=== PATIENT | male | born 1990 | race Caucasian/White ===

== ENCOUNTER → 2020-12-15 10:39 | Outpatient (BNVA) | payer SELFPAY | PROVIDERS: Family Provider Nurse Practitioner Family; PCP Registered Nurse; Visit Provider Registered Nurse | DX: K43.2 Incisional hernia without obstruction or gangrene (principal); Z83.42 Family history of familial hypercholesterolemia | CPT/HCPCS: 80061 ==

== ENCOUNTER 2020-12-24 13:41 | Outpatient (CLI) | payer SELFPAY ==
--- NOTE | 2020-12-24 14:00 | CT_ITS ---
WS: [id number] CT ABDOMEN PELVIS TECHNIQUE: Noncontrast CT of the abdomen and pelvis with coronal and sagittal reformatted images. CLINICAL INFORMATION: K43.2 - Incisional hernia without obstruction or gangrene COMPARISON: None. DLP: 1150.[address] scans at [facility] use at least one of these dose optimization techniques: automat ed exposure control; mA and/or kV adjustment per patient size (includes targeted exams where dose is matched to clinical indication); or iterative reconstruction. FINDINGS: Large appendicolith within the appendix measuring 7.3 mm. Fluid-filled appendix with mild induration suspicious for acute appendicitis. Dilated appendix measures 10 mm. No evidence of drainable abscess or fluid collection. Noncontrast liver is normal. Noncontrast spleen is normal. Normal GE junction. Adrenal glands are nor mal. No hydronephrosis in either kidney. No obstructing renal or ureteral calculi. Normal GE junction . No evidence of small or large bowel obstruction. No free fluid in the pelvis. A few prominent lymph nodes in the right lower quadrant. Tiny fat-containing umbilical hernia. CT/CT abdomen pelvis wo con [id number] IMPRESSION: 1. Dilated fluid-filled appendix with mild surrounding inflammatory changes an d prominent appendicolith. Findings consistent with acute appendicitis. 2. A few prominent lymph nodes in the right lower quadrant. 3. No evidence of abscess or drainable fluid collection Notified KITTY Chaney at 12/24/2020 2:28 PM.
== END 2020-12-24 13:42 | disposition home or self-care (01) ==
LOC: RADWPI 13:43
PROVIDERS: Family Provider Nurse Practitioner Family; PCP Registered Nurse; Visit Provider Registered Nurse
DX: K43.2 Incisional hernia without obstruction or gangrene (principal); R10.9 Unspecified abdominal pain
CPT/HCPCS: 74176

== ENCOUNTER 2020-12-24 14:42 | Emergency (ER) | payer SELFPAY ==
[2020-12-24 14:56] VITALS: BP 160/94; PULSE 53; RESP 16; TEMP 36.8; O2SAT 98; BMI 31.0
[2020-12-24] MEDS: sodium chloride 0.9% 1,000 ML 999 ML IV (15:51)
--- NOTE | 2020-12-24 15:56 | ED_ITS ---
HPI - Abdominal Pain General: Chief Complaint: Abdominal Pain Stated Complaint: [facility] SENT FOR APPENDICITIS SYMPT Time Seen by Provider: 12/24/20 15:24 History of Present Illness: HPI narrative: 30-year-old male sent to the ER from [facility] after CT was done of his abdomen showing acute appendicitis. He was read as acute appendicitis however the patient has minimal to no significant symptoms he has been having some abdominal discomfort most with his epigastrics appetite has been poor has been palpating his abdomen thought he felt a mass at this nurse practitioner had ordered a CT of his abdomen. He denies any specific pain right now although he is somewhat uncomfortable. MD elicited complaint: abdominal pain Pertinent past history: none Location: None Severity: mild Quality: cramping Radiation: none Migration to: no migration Exacerbating factors: nothing Relieving factors: nothing Associated Symptoms: Denies anorexia, belching, bloating, change in bowel habits, change in stool character, chills, coffee ground emesis, constipation, GI cramping, diarrhea, dyspepsia, dysuria, excessive flatus, fever(s), heartburn, hematochezia, hematuria, hematemesis, fecal incontinence, loose stools, melena, nausea, poor appetite, syncope and vomiting Review of Systems Const: Denies: fever(s) or chills ENMT: Denies: throat pain, ear or mastoid pain, nasal discharge or nasal congestion Card: Denies: syncope Resp: Denies: dyspnea, productive cough or non-productive cough GI: Denies: nausea, vomiting, hematemesis, coffee ground emesis, heartburn, diarrhea, constipation, bloating, GI cramping, belching, excessive flatus, fecal incontinence, change in bowel habits, change in stool character, hematochezia or melena : Denies: dysuria or hematuria Skin/Breast: Denies: rash or pruritus PFSH ED PFSH: Medical History No significant past medical history Surgical History No significant past surgical history Family History Grandfather Cancer Father Heart disease Other Diabetes Hyperlipidemia Hypertension Stroke Social History Smoking and tobacco status: never smoked Alcohol intake: current Alcohol use comment: Occasional Adopted: No Caregiver/support person: No Lives independently: No Household members: spouse and children History of recent travel: No Sexually active: Yes Current gender identity: Male Physical Exam Const: COMMON NORMALS: no acute distress GENERAL APPEARANCE: cooperative and comfortable ORIENTATION/CONSCIOUSNESS: Yes awake, Yes oriented to person, Yes oriented to place and Yes oriented to time HENMT: COMMON NORMALS: normocephalic, atraumatic and hearing grossly normal bilaterally HEAD & SCALP: normocephalic and atraumatic Neck/C-Spine: COMMON NORMALS: no JVD Lymph: LYMPHATIC: no lymphadenopathy noted and no lymphedema noted Resp: COMMON NORMALS: normal respiratory effort, No retractions, No use of accessory muscles and clear to auscultation bilaterally AUSCULTATION: clear to auscultation bilaterally Cardio: COMMON NORMALS: no JVD, regular rate, regular rhythm and No murmurs present (Cardio) RATE: regular rate RHYTHM: regular rhythm GI: COMMON NORMALS: Soft to palpation and No hepatosplenomegaly present AU SCULTATION: Yes normoactive bowel sounds PALPATION: Yes Soft to palpation, No Tenderness to palpation present (GI), No Guarding due to palpation present (GI) and Yes No hepatosplenomegaly present Extremity: COMMON NORMALS: normal to inspection, capillary refill normal, no clubbing, cyanosis or edema, no calf tenderness and no pedal edema Neuro: SENSORIUM/ORIENTATION: Yes oriented to person, Yes oriented to place and Yes oriented to time Skin: COMMON NORMALS: no rashes or lesions noted GENERAL SKIN EXAM: no rashes or lesions noted Course Vital Signs: Vital signs: Vital Signs Temperature 98.2 F 12/24/20 14:56 Pulse Rate 53 L 12/24/20 14:56 Respiratory Rate 18 12/24/20 16:42 Blood Pressure 160/94 12/24/20 14:56 Pulse Oximetry 98 12/24/20 14:56 MDM - Abdominal Pain MDM Narrative: Medical decision making narrative: His exam is unremarkable however the CT was read as acute appendicitis consulted Dr. Whitmore he came and seen the patient white count is also normal he will recommend just observing he does not feel that there is an acute appendicitis discharge patient home return if he has problems. Lab Data: Labs: Lab Results 12/24/20 12/24/20 Range/Units 15:45 15:45 WBC 5.7 (4.0-10.0) 10^3/ uL RBC 5.51 H (4.1-5.3) 10^6/u L Hgb 15.6 (11.7-16.6) g/dL Hct 46.0 (42.0-52.0) % MCV 83.5 (80-94) fL MCH 28.3 (28.0-34.0) pg MCHC 33.9 (30.0-36.0) g/dL RDW 11.7 L (12.1-15.1) % Plt Count 370 (130-400) 10^3/c mm MPV 10.1 (7.4-10.4) fL Neut % (Auto) 62.1 % Lymph % (Auto) 27.5 % [place] % (Auto) 8.4 % Eos % (Auto) 1.2 % Baso % (Auto) 0.4 % Neut # (Auto) 3.55 (1.8-7.7) 10^3/u L Lymph # (Auto) 1.6 (0.8-4.8) 10^3/u L [place] # (Auto) 0.5 (0.2-0.9) 10^3/u L Eos # (Auto) 0.1 (0.0-0.8) 10^3/u L Baso # (Auto) 0.0 (0.0-0.1) 10^3/u L Nucleated RBC % (a uto) 0 % Nucleated RBCs # 0.0 /100WBC Sodium 138 (136-145) mmol/L Potassium 3.8 (3.5-5.1) mmol/L Chloride 102 (98-107) mmol/L Carbon Dioxide 27 (22-29) mmol/L Anion Gap 12.8 (5-19) BUN 12 (6-20) mg/dL Creatinine 1.0 (0.7-1.2) mg/dL GFR Calculation 86.6 L (90-130) mL/min Glucose 98 (65-115) mg/dL Calculated Osmolal ity 286 (285-295) mOsm/k g Calcium 8.9 (8.5-10.5) mg/dL Total Bilirubin 0.4 (0.15-1.2) mg/dL AST 16 (0-40) U/L ALT 17 (0-41) U/L Alkaline Phosphata se 49 (40-130) IU/L Total Protein 7.6 (6.6-8.7) g/dL Albumin 4.8 (3.5-5.2) g/dL Globulin 2.8 (1.3-4.6) g/dL Discharge Plan Discharge Patient Disposition: Home Clinical Impression: Abnormal CT of the abdomen Condition: Stable Prescriptions: No Action No Known Home Medications RF: 0 Discharge Orders: Discharge ED (Routine); Ordered 12/24/20 Ordered By: Rinku Quiroga Referrals: Soledad Toro FNP [Primary Care Provider] - Discharge Diet: Usual diet Discharge Activity: Resume usual activity Patient Instructions: Opioid Safety Coding Level of Care Code ED Sponge Press Operator for Georgette Cuello
[2020-12-24 15:57] LABS: Basophils % 0.4 %; Eosinophils # 0.1 10^3/uL (0.0-0.8); Eosinophils % 1.2 %; Hemoglobin 15.6 g/dL (11.7-16.6); Lymphocytes # 1.6 10^3/uL (0.8-4.8); Lymphocytes % 27.5 %; Mean Corpuscular HGB Conc 33.9 g/dL (30.0-36.0); Mean Corpuscular Hemoglobin 28.3 pg (28.0-34.0); Mean Corpuscular Volume 83.5 fL (80-94); Mean Platelet Volume 10.1 fL (7.4-10.4); Monocytes # 0.5 10^3/uL (0.2-0.9); Monocytes % 8.4 %; Neutrophils # 3.55 10^3/uL (1.8-7.7); Neutrophils % 62.1 %; Nucleated Red Blood Cells % 0 %; Platelet Count 370 10^3/cmm (130-400); Red Blood Count 5.51 10^6/uL (4.1-5.3); Red Cell Distribution Width 11.7 % (12.1-15.1); White Blood Count 5.7 10^3/uL (4.0-10.0)
[2020-12-24 16:20] LABS: Alanine Aminotransferase 17 U/L (0-41); Albumin Level 4.8 g/dL (3.5-5.2); Alkaline Phosphatase 49 IU/L (40-130); Anion Gap 12.8 (5-19); Aspartate Amino Transferase 16 U/L (0-40); Blood Urea Nitrogen 12 mg/dL (6-20); Calcium 8.9 mg/dL (8.5-10.5); Carbon Dioxide 27 mmol/L (22-29); Chloride 102 mmol/L (98-107); Creatinine Clr Calc Pharmacy 120.7824; Globulin 2.8 g/dL (1.3-4.6); Glomerular Filtration Rate 86.6 mL/min (90-130); Glucose 98 mg/dL (65-115); Osmolality Calculated 286 mOsm/kg (285-295); Potassium 3.8 mmol/L (3.5-5.1); Sodium 138 mmol/L (136-145); Total Bilirubin 0.4 mg/dL (0.15-1.2); Total Protein 7.6 g/dL (6.6-8.7)
--- NOTE | 2020-12-24 16:29 | P.CONIM_ITS ---
Providers/Reason For Consult Consulting Physican/Specialty*: General Surgery Bryon Smart MD Reason for Consult*: Possible appendicitis by CT scan. Primary Care Provider: KITTY Chaney History of Present Illness History of Present Illness Domingo Queen is a 30 year old male with somewhat of an interesting history over the past couple of weeks. He said he was lifting something heavy about 2 weeks ago and noticed he was having some upper abdominal pain and points to his costal margins bilaterally. He noted that he was constipated around the same time, as he is usually accustomed to having several bowel movements a day, and that was not occurring. He was seen in his primary care physician's office and it was thought that he may have developed a hernia from strenuous activity, although I am not sure what was found on exam. A CAT scan was arranged to look at all the intra-abdominal structures. The patient says that he got better and basically canceled the CAT scan last week. He then had a very bad day on Sunday this past weekend (5 days ago). He says he once again had abdominal pain but seems to suggest it was in the upper abdomen. At some point, he drank some magnesium citrate and says as a result he is no longer constipated. He was seen again in his primary care physician's office on Sunday but a CAT scan could not be arranged until today. A follow-up appointment with Dr. Solomon from general surgery was also arranged for this following Sunday. He had the CAT scan done as an outpatient today and then went to [facility] for lunch. He was sitting down getting ready to eat when he received a phone call suggesting that the radiologist thought he may be developing acute appendicitis (no hernia was identified). He was told to come directly to the emergency room. I was asked to see him in consultation by Dr. Quiroga in the emergency room. Despite the findings on the CAT scan, the patient says that he has absolutely no pain and feels very well today. He had not received any pain medication or antiemetics in the emergency department prior to my seeing him. The patient says that he never really had any lower abdominal pain with any of his symptoms over the past couple of weeks. He has not had any fevers, chills, nausea, vomiting, changes in bowel habits other than what has already been described. He thought that he might have a history of possible GERD, but he describes this more as slight regurgitation of fluid after he eats red sauces. It does not sound like it is as bad of a problem as it used to be. He denies heartburn. He does not take any antacids. He cannot tell me that he has any food intolerances otherwise. He denies postprandial nausea and vomiting. In short, I cannot elicit an ongoing history suggestive of biliary colic. Review of Systems General: Reports: 10 or more systems reviewed and unremarkable except in HPI and below Const: Denies: fever(s) or chills GI: Reports: abdominal pain (Intermittent over the past 2 weeks, primarily in the costal margin region () and constipation (Within the past 2 weeks, now resolved) Meds/Allergies Home Medications and Allergies Home Medications Medication Instructions Recorded Confirmed Last Taken Type No Known Home Medications 12/15/20 12/24/20 Unknown History Allergies Allergy/AdvReac Type Severity Reaction Status Date / Time No Known Allergies Allergy Verified 12/15/20 09:59 PFSH Acute PFSH: Medical History (Updated 12/24/20 @ 16:41 by Bryon Smart MD) No significant past medical history Surgical History (Updated 12/24/20 @ 16:41 by Bryon Smart MD) No significant past surgical history Family History (Updated 12/15/20 @ 10:02 by Suzie Abreu LPN) Grandfather Cancer Father Heart disease Other Diabetes Hyperlipidemia Hypertension Stroke Social History (Updated 12/24/20 @ 16:41 by Bryon Smart MD) Smoking and tobacco status: never smoked Alcohol intake: current Alcohol use comment: Occasional Adopted: No Caregiver/support person: No Lives independently: No Household members: spouse and children History of recent travel: No Sexually active: Yes Current gender identity: Male Vitals/I&O/Wt Last Vital Signs Temp 98.2 F 12/24/20 14:56 Pulse 53 L 12/24/20 14:56 Resp 16 12/24/20 14:56 BP 160/94 12/24/20 14:56 Pulse Ox 98 12/24/20 14:56 Weight last 48 hrs Weight 210 lb Physical Exam Narrative: EXAM NARRATIVE: The patient was encountered in his room in the emergency department. He does not appear to be in any distress. The pupils are equal. No carotid bruits are heard. No neck masses are palpated. The chest is clear anteriorly. The heart is regular. The abdomen is mildly obese but is soft and has good bowel sounds. I cannot elicit any tenderness on exam today. Rovsing's sign is clearly negative. He has no tenderness in the right lower quadrant and no evidence of masses, etc. The extremities reveal no edema. Neurologically the patient appears to be grossly intact. Data Imaging^: CT Abd/Pel: Radiologist's impression: CT abdomen/pelvis 12/24/2020 IMPRESSION: 1. Dilated fluid-filled appendix with mild surrounding inflammatory changes and prominent appendicolith. Findings consistent with acute appendicitis. 2. A few prominent lymph nodes in the right lower quadrant. 3. No evidence of abscess or drainable fluid collection A&P Assessment and plan (1) Abnormal CT of the abdomen: CT reviewed. I agree that there is an obvious appendicolith within the appendix and perhaps one area where there could be an argument for some dirty fat /fat stranding around the appendix. Otherwise clinically, however, the patient has no evidence of acute appendicitis. He is asymptomatic, his exam is completely normal, his white blood cell count is also completely normal with a normal differential. He does have somewhat of an interesting history over the past couple of weeks but I cannot attribute any of the symptoms that he was having to appendicitis. We talked about the typical prodrome and symptoms of appendicitis. We also discussed that since we know he has an appendicolith, it is possible that he could develop symptoms from this at any time. We also discussed symptoms of biliary colic since he was having upper abdominal pain but I have a hard time making an argument for that, also. I told the patient that we can either let him go home with instructions to return if any of his symptoms come back versus admitting him for observation just to keep an eye on him. He seems to understand everything I am discussing and is very anxious to go home today. His desire to go home/disposition was discussed with Dr. Quiroga in the emergency department. The patient and his had asked me if they still need to keep their appoint ment with Dr. Solomon on Sunday. I told them I would leave it up to their discretion, but if he is not having any symptoms and I do not think Dr. Solomon is going to recommend do anything differently at this time. I am going to let them make up their own mind. In the interim, if he has any recurring symptoms he is going to return to the emergency department. Status: Acute Consult Attestations Medical Necessity Statement: The patient is going to be discharged from the emergency room today at his request. Coding Level of Care Code Acute Unload Associate for Georgette Cuello Diagnoses Abnormal CT of the abdomen R93.5
[2020-12-24 16:31] VITALS: RESP 18
[2020-12-24 16:42] VITALS: RESP 18
== END 2020-12-24 16:42 | disposition home or self-care (01) ==
PROVIDERS: Emergency Provider Family Medicine; PCP Registered Nurse
DX: R93.5 Abnormal findings on diagnostic imaging of other abdominal regions, including retroperitoneum (principal)
CPT/HCPCS: 12345; 80053; 85025; 96361; 96374; 96375; 99283; J7030

== ENCOUNTER 2021-05-13 10:57 | Outpatient (CLI) | payer SELFPAY ==
--- NOTE | 2021-05-13 11:30 | CT_ITS ---
WS: [id number] CT ABDOMEN PELVIS TECHNIQUE: Contrast-enhanced CT of the abdomen and pelvis with coronal and sagittal reformatted image s. CLINICAL INFORMATION: R10.9 - Unspecified abdominal pain COMPARISON: CT December 24, 2020 DLP: 1181.[address] scans at [facility] use at least one of these dose optimization techniques: automated e xposure control; mA and/or kV adjustment per patient size (includes targeted exams where dose is matc hed to clinical indication); or iterative reconstruction. FINDINGS: Appendicolith in the right lower quadrant. Appendicolith measures 6 mm. Dilated fluid-filled appendix with surrounding inflammatory stranding and enhancement compatible with acute appendicitis. No evide nce of drainable fluid collection or abscess. A few reactive lymph nodes in the right lower quadrant. Dilated fluid-filled appendix measures approximately 8 mm. In addition there appears to be a tubular air-filled structure arising from the ileum which likely represents Meckel's diverticulum. Normal liver. Normal spleen. Normal GE junction. Normal pancreas. Gallbladder is normal. Lung bases a re well aerated. Adrenal glands are normal. Normal renal parenchymal enhancement. No hydronephrosis. Normal caliber abdominal aorta. Normal sigmoid colon. No evidence of high-grade small or large bowel obstruction. CT/CT abdomen pelvis w con* [id number] IMPRESSION: 1. Dilated fluid-filled appendix in the right lower quadrant with surrounding inflammatory stranding and edema with associated appendicolith consistent with acute appendicitis. Appendix measures approximately 8 mm. 2. No evidence of drainable abscess or fluid collection. A few reactive lymph nodes in the right lower quadrant. 3. Suspected air-filled Meckel's diverticulum arising from the terminal ileum 4. No other acute findings. Message left with Dr. Solomon's Nurse 05/13/2021 1:22 PM Patient instructed to return to Surgery clinic for further evaluation.
[2021-05-13] MEDS: iohexol 300 mg/mL 50 mL Btl PO (11:44)
[2021-05-13] MEDS: iohexol 300 mg/mL 100 mL Btl IV (12:54)
== END 2021-05-13 10:58 | disposition home or self-care (01) ==
PROVIDERS: PCP Registered Nurse; Visit Provider Surgery
DX: R10.9 Unspecified abdominal pain (principal); R60.0 Localized edema
CPT/HCPCS: 74177; Q9967

== ENCOUNTER 2021-05-13 13:41 | Day surgery (SDC) | payer SELFPAY ==
[2021-05-13] VITALS (9 sets, daily range): BP systolic 100–146; BP diastolic 53–81; PULSE 66–81; RESP 15–18; TEMP 36.6–37.3; O2SAT 95–100; BMI 31.7
--- NOTE | 2021-05-13 13:22 | W.PM.OPSUD ---
Surgery/Procedure H&P Update DATE OF PROCEDURE: May 13, 2021 DATE H&P PERFORMED: 05/13/21 H&P UPDATE INFORMATION: I have reviewed H&P completed within last 30 days, I have examined patient prior to procedure and No changes to prior documentation PLANNED PROCEDURE: Operation Date: 05/13/21 14:00 Proposed Procedures p Laparoscopic Appendectomy(Not Applicable) - Dimitri Solomon MD
--- NOTE | 2021-05-13 14:09 | ANES.PREANE2 ---
Pre-Anesthetic Assessment Pre-Anesthetic Assessment: Height/Weight: Height 1.75 m Weight 97.522 kg Temp Pulse Resp BP Pulse Ox 99.1 F 81 16 146/81 99 05/13/21 14:02 05/13/21 14:02 05/13/21 14:02 05/13/21 14:02 05/13/21 14:02 Preop Diagnosis: acute appendicitis Proposed Procedure: Operation Date: 05/13/21 14:00 Proposed Procedures p Laparoscopic Appendectomy(Not Applicable) - Dimitri Solomon MD Was Beta Andreas taken within 24 hours: N/A Was Clonidine taken within 24 hours: N/A Last intake: Intake Last Liquid Date 05/13/21 Last Liquid Time 08:00 Last Solid Date 05/12/21 Last Solid Time 18:00 Social: Social History: No alcohol and No tobacco Exam: Pre-Anes Outpt Exam: alert, oriented x 3, clear to auscultation bilaterally and regular rate & rhythm Airway: Submandibular: WNL Cervical ROM: WNL MP: 2 Dentition: Full History/ROS: No significant history except as noted GI: Comments: Acute abdomen Anesthetic Plan: ASA status: 1E Anesthesia: General Risk of > 500 ml blood loss (7ml/kg in children): No PFSH Anesthesia PFSH: Medical History No significant past medical history Surgical History No significant past surgical history Family History Grandfather Cancer Father Heart disease Other Diabetes Hyperlipidemia Hypertension Stroke Social History Smoking and tobacco status: never smoked Alcohol intake: current Adopted: No Caregiver/support person: No Lives independently: No Household members: spouse and children History of recent travel: No Sexually active: Yes Current gender identity: Male Data Anesthesia Cardiac Studies: No Data to Display
[2021-05-13] MEDS: sodium chloride 0.9% 1,000 ML 30 ML IV (14:20)
[2021-05-13] MEDS: piperacillin-tazobactam 3.375 GM in sodium chloride 0.9% (plus) 50 ML IV (14:20)
--- NOTE | 2021-05-13 15:32 | PM.OP ---
Operative Report Date of procedure: May 13, 2021 Pre-op Diagnosis: acute appendicitis Post-op diagnosis: same Procedure Done: Laparoscopic appendectomy Specimens removed/disposition: Appendix Surgeon: Dimitri Solomon Anesthesia: General Condition: stable Disposition: PACU Procedure: The patient was taken to the Operating Room and intubated under general anesthesia after antibiotic had been administered. Using a 15 blade, a 1-cm infraumbilical incision was made and using open Phil technique, the peritoneal cavity was entered. A 12mm port with balloon was placed and 15 mm of pneumoperitoneum was created and 10-mm 30 degree scope was introduced. Two separate 5mm ports were placed in the suprapubic area and left lower quadrant under direct visualization. The appendix was noted in the right lower quadrant and appeared acutely inflamed.. Using [place] forceps, an opening was made in the mesoappendix near the base of the appendix. An Endo GOLDEN stapler 45mm long 3.5mm blue load was introduced to divide the appendix at it's base. Using electrocautery, the mesoappendix including the appendicular artery was divided. There was no bleeding noted and the staple line appeared intact. The right lower quadrant was irrigated with saline and an EndoCatch bag was introduced to remove the appendix. All three ports were removed under direct visualization and there was no bleeding noted on the port sites. 10 cc of 0.5% Marcaine was infiltrated at the port sites. The fascia at the umbilical port was closed using figure of eight 0-Vicryl sutures and subcutaneous tissue was approximated using 3-0 Vicryl and skin at all 3 port sites was closed using 4-0 Monocryl and Dermabond.
--- NOTE | 2021-05-13 15:40 | ANE.PACU2 ---
Inpatient post-anesthesia follow up: Airway intact: Yes Vital signs: Temperature 99.1 F Pulse Rate 81 Respiratory Rate 16 Blood Pressure 146/81 Pulse Oximetry 99 Oxygen Delivery Me thod Room Air Oxygen Flow Rate Fraction of Inspir ed Oxygen Hydration adequate: Yes Nausea and vomiting: No Pain level: 3 Mental status: Baseline
== END 2021-05-13 16:45 | disposition home or self-care (01) ==
PROVIDERS: PCP Registered Nurse; Visit Provider Surgery
PROC: 0DTJ4ZZ Resection of Appendix, Percutaneous Endoscopic Approach (ICD-10-PCS; CPT 44970; principal; 2021-05-13 13:55)
DX: K35.891 Other acute appendicitis without perforation, with gangrene (principal)
CPT/HCPCS: 44970; 88304; J0330; J1100; J2405; J2543; J2704; J2710; J3010; J3490; J7030

== ENCOUNTER → 2022-02-14 14:36 | Outpatient (BNVA) | payer SELFPAY | PROVIDERS: PCP Registered Nurse; Visit Provider Registered Nurse | DX: R53.83 Other fatigue (principal) | CPT/HCPCS: 80053; 82607; 84403; 84443 ==

== ENCOUNTER → 2023-09-06 09:19 | Outpatient (BNVA) | payer SELFPAY | PROVIDERS: PCP Registered Nurse; Visit Provider Registered Nurse | DX: R53.83 Other fatigue (principal) | CPT/HCPCS: 80053; 80061 ==